=== PATIENT | male | born 1945 | race Two or more races ===

== ENCOUNTER 2023-11-30 10:47 | Inpatient (IN) | payer OTHER ==
[~2023-11-30] VITALS: Ht 182.9 cm; Wt 139.7 kg
[2023-11-30] MEDS ORDERED: RINGERS SOLUTION,LACTATED 1,000 ML IV STA (12:38)
[2023-11-30 13:13] LABS: MEAN CELL VOLUME 114.7 fL (80.0-100.00); MEAN CORPUSCULAR HGB CONC 31.4 g/dl (32.0-36.0); PLATELET COUNT 130 K/uL (150-450); RED BLOOD COUNT 1.72 M/uL (4.00-6.00); RED CELL DISTRIBUTION WIDTH 23.3 % (11.5-14.5)
[2023-11-30 13:21] LABS: INR 1.18; PARTIAL THROMBOPLASTIN TIME 21.9 SECONDS (22.0-34.0); PROTHROMBIN TIME 12.7 SECONDS (9.0-11.5)
[2023-11-30 13:25] LABS: ALBUMIN 3.3 gm/dL (3.4-5.0); BILIRUBIN TOTAL 1.32 mg/dL (0.3-1.2); BILIRUBIN,CONJUGATED 0.37 mg/dL (0.0-0.2); BILIRUBIN,UNCONJUGATED 0.95 mg/dL (0.0-0.6); CALCIUM 9.1 mg/dL (8.5-10.1); CREATININE SERUM 1.13 mg/dL (0.70-1.30); GFR 62.6; POTASSIUM 3.79 mEq/L (3.5-5.1); TOTAL PROTEIN 6.2 gm/dL (6.4-8.2)
[2023-11-30 13:51] LABS: HEMATOCRIT 19.7 % (39.0-48.0)
[2023-11-30 13:52] LABS: HEMOGLOBIN 6.2 g/dL (13-16.00)
[2023-11-30 14:46] LABS: URINE APPEARANCE Cloudy; URINE BILIRRUBIN Negative (NEGATIVE); URINE BLOOD Negative; URINE COLOR Yellow; URINE GLUCOSE Negative (NEGATIVE); URINE KETONE Negative (NEGATIVE); URINE LEUKOCYTE Negative; URINE NITRATE Negative; URINE PROTEIN 30 (NEGATIVE); URINE UROBILINOGEN 0.2 E.U./dl
[2023-11-30 14:50] LABS: URINE BACTERIA 59.2 uL (0.0-1933); URINE EPITHELIAL CELLS 2.1 uL (0.0-38.8); URINE RBC 102.1 uL (0.0-20.8); URINE WBC 24.1 uL (0.0-23.2)
[2023-11-30 15:07] LABS: URINE CAST 0.76 uL (0.0-1.40)
[2023-11-30 15:09] LABS: URINE YEAST NEGATIVE /hpf
[2023-11-30 15:10] LABS: URINE CRYSTALS MANY /HPF
[2023-11-30] MEDS ORDERED: IPRATROPIUM BROMIDE 0.5 MG/2.5 ML AMPUL.NEB IH SCH (17:25)
[2023-11-30] MEDS ORDERED: FUROsemide 20 MG/2 ML VIAL IV SCH ×2 (17:30→17:31)
[2023-11-30] MEDS ORDERED: ONDANSETRON HCL 4 MG in 0.9 % SODIUM CHLORIDE 50 ML IV PRN (17:45)
[2023-11-30] MEDS ORDERED: ACETAMINOPHEN 500 MG GEL..CAP PO PRN (17:45)
[2023-11-30 19:07] LABS: INR 1.18; PARTIAL THROMBOPLASTIN TIME 21.1 SECONDS (22.0-34.0); PROTHROMBIN TIME 12.7 SECONDS (9.0-11.5)
[2023-11-30 20:38] VITALS: BP 116/52
[2023-11-30 22:00] LABS: ABG PH 7.462 (7.35-7.45); ABG PO2 103.2 mmHg (80-100); ABG pCO2 31.9 mmHg (35-45); BASE EXCESS -0.6 mmol/l; BICARBONATE 22.3 mmol/l (23-25); Tco2 23.3 mmol/l
[2023-11-30 22:01] LABS: allen test SATISFACTORY; o2 32 %; puncture site RADIAL LEFT
[2023-11-30 22:03] LABS: SaO2 98.3 %
[2023-11-30 22:20] VITALS: O2SAT 100
[2023-12-01] VITALS (7 sets, daily range): BP systolic 113–117; BP diastolic 52–61; O2SAT 89–100
[2023-12-01] MEDS ORDERED: PANTOPRAZOLE SODIUM 40 MG/VIAL VIAL IV SCH (09:00)
[2023-12-01 22:52] LABS: TSH 1.51 uIU/mL (0.358-3.74)
[2023-12-02] VITALS (8 sets, daily range): BP systolic 102–132; BP diastolic 52–70; O2SAT 88–100
[2023-12-02 18:32] LABS: PLEURAL FLUID APPEARANCE CRYSTAL CLEAR; PLEURAL FLUID COLOR YELLOW
[2023-12-02 18:48] LABS: TP PLEURAL FLUID 1.4 g/dl
[2023-12-02 19:43] LABS: MONONUCLEAR 81 %; POLYMORPHONUCLEAR 19 %
[2023-12-03] VITALS (8 sets, daily range): BP systolic 119–123; BP diastolic 55–79; O2SAT 90–100
[2023-12-03 22:19] LABS: HEMATOCRIT 27.8 % (39.0-48.0); MEAN CELL VOLUME 100.9 fL (80.0-100.00); MEAN CORPUSCULAR HGB CONC 32.9 g/dl (32.0-36.0); RED BLOOD COUNT 2.75 M/uL (4.00-6.00); RED CELL DISTRIBUTION WIDTH 22.6 % (11.5-14.5)
[2023-12-03 22:20] LABS: HEMOGLOBIN 9.2 g/dL (13-16.00); MEAN CORPUSCULAR HEMOGLOBIN 33.4 pg (27.00-32.0); PLATELET COUNT 91 K/uL (150-450)
[2023-12-04] VITALS (9 sets, daily range): BP systolic 117–143; BP diastolic 50–67; O2SAT 90–100
[2023-12-05] VITALS (7 sets, daily range): BP systolic 113–130; BP diastolic 51–56; O2SAT 96–100
[2023-12-06] VITALS (10 sets, daily range): BP systolic 121–124; BP diastolic 65–70; O2SAT 97–100
[2023-12-06] MEDS ORDERED: FUROsemide 20 MG/2 ML VIAL IV SCH (09:00)
[2023-12-06 10:54] LABS: ALBUMIN 2.7 gm/dL (3.4-5.0); BILIRUBIN TOTAL 0.47 mg/dL (0.3-1.2); CALCIUM 8.8 mg/dL (8.5-10.1); CREATININE SERUM 1.1 mg/dL (0.70-1.30); GFR 64.57; GLOBULINA 2.4 G/DL (2.4-3.5); POTASSIUM 3.91 mEq/L (3.5-5.1); TOTAL PROTEIN 5.1 gm/dL (6.4-8.2)
[2023-12-07] VITALS (7 sets, daily range): BP systolic 120–153; BP diastolic 57–65; O2SAT 90–100
[2023-12-07] MEDS ORDERED: FUROsemide 20 MG/2 ML VIAL IV SCH (10:00)
[2023-12-08] VITALS (7 sets, daily range): BP systolic 117–146; BP diastolic 57–64; O2SAT 95–100
[2023-12-08 13:31] LABS: HEMATOCRIT 33.9 % (39.0-48.0); MEAN CELL VOLUME 97.9 fL (80.0-100.00); MEAN CORPUSCULAR HGB CONC 32.7 g/dl (32.0-36.0); RED BLOOD COUNT 3.46 M/uL (4.00-6.00); RED CELL DISTRIBUTION WIDTH 20.5 % (11.5-14.5)
[2023-12-08 14:20] LABS: HEMOGLOBIN 11.1 g/dL (13-16.00)
[2023-12-08 14:21] LABS: PLATELET COUNT 122 K/uL (150-450)
[2023-12-08 15:35] LABS: CALCIUM 8.8 mg/dL (8.5-10.1); CREATININE SERUM 1.05 mg/dL (0.70-1.30); GFR 68.13; POTASSIUM 4.06 mEq/L (3.5-5.1)
[2023-12-09 01:03] VITALS: BP 132/52
[2023-12-09 06:09] VITALS: O2SAT 93
[2023-12-09 10:43] VITALS: BP 136/52
== END 2023-12-09 15:05 | DRG 723 ==
LOC: ER 10:48 → MEDJ 17:59
PROVIDERS: General Practice; Internal Medicine; Radiology Vascular & Interventional Radiology; ADMIT Internal Medicine; ATTEND Internal Medicine
PROC: BW21ZZZ Computerized Tomography (CT Scan) of Abdomen and Pelvis (ICD-10-PCS; 2023-11-30)
PROC: B24BZZZ Ultrasonography of Heart with Aorta (ICD-10-PCS; 2023-11-30)
PROC: 4A12X4Z Monitoring of Cardiac Electrical Activity, External Approach (ICD-10-PCS; 2023-11-30)
PROC: 30233N1 Transfusion of Nonautologous Red Blood Cells into Peripheral Vein, Percutaneous Approach (ICD-10-PCS; 2023-11-30)
PROC: 0W993ZX Drainage of Right Pleural Cavity, Percutaneous Approach, Diagnostic (ICD-10-PCS; principal; 2023-12-02)
DX: C61 Malignant neoplasm of prostate (principal); C77.5 Secondary and unspecified malignant neoplasm of intrapelvic lymph nodes; C79.51 Secondary malignant neoplasm of bone; I50.20 Unspecified systolic (congestive) heart failure; I38 Endocarditis, valve unspecified; N17.9 Acute kidney failure, unspecified; I48.91 Unspecified atrial fibrillation; I27.20 Pulmonary hypertension, unspecified; I11.0 Hypertensive heart disease with heart failure; D63.0 Anemia in neoplastic disease; D69.6 Thrombocytopenia, unspecified